=== PATIENT | male | born 2000 | race African-American/Black ===

== ENCOUNTER 2018-03-08 14:16 | Emergency (ER) | payer MEDICAID ==
[~2018-03-08] VITALS: Ht 193 cm; Wt 72.6 kg
--- NOTE | 2018-03-08 14:28 | NUR ---
PT BIBRA FOR B RIBCAGE PAIN FOR 2DAYS, -TRAUMA NOTED, PT AAOX4, RESPRIATIONS EVEN AND UNLABORED, NO SOB, NAD NOTED, PT ON MONITOR, TO ER BED 12, AWAITING ER PROVIDER EVAL
[2018-03-08] MEDS ORDERED: HYDROMORPHONE INJ 2 MG/ML DISP.SYRIN ONE ×2 (14:51→16:46)
[2018-03-08] MEDS ORDERED: ONDANSETRON HCL/PF 4 MG/2 ML VIAL ONE (14:51)
[2018-03-08 14:52] LABS: BASOPHILS # (AUTO) 0.1 /CMM (0.0-0.2); BASOPHILS % (AUTO) 0.7 % (0.0-2.0); EOSINOPHILS % (AUTO) 3.2 % (0.0-6.0); HEMATOCRIT 23 % (39-51); HEMOGLOBIN 8.1 g/dL (13.5-17.5); LYMPHOCYTES % (AUTO) 18.6 % (20.0-44.0); MEAN CORPUSCULAR HGB CONC 35 g/dl (31.0-36.0); MEAN CORPUSCULAR VOLUME 88 fL (80-96); MONOCYTES # (AUTO) 1.4 /CMM (0.1-1.30); MONOCYTES % (AUTO) 8.3 % (2.0-12.0); NEUTROPHILS # (AUTO) 11.3 /CMM (1.8-8.9); NEUTROPHILS % (AUTO) 69.2 % (43.0-81.0); PLATELET COUNT (AUTO) 319 /CMM (150-450); RED BLOOD CELL COUNT(AUTO) 2.63 MIL/uL (4.5-6.0); WHITE BLOOD COUNT (AUTO) 16.3 K/uL (4.3-11.0)
[2018-03-08 14:52] LABS: APPEARANCE,URINE Clear (CLEAR); BILIRUBIN,URINE SMALL (NEGATIVE); BLOOD, URINE Trace-intact Ery/uL (NEGATIVE); COLOR,URINE Yellow (YELLOW); KETONES,URINE Negative (NEGATIVE); LEUKOCYTE ESTERASE ,URINE Moderate (NEGATIVE); NITRITE, URINE Positive (NEGATIVE); PH,URINE 7.5 (5.0-8.0); PROTEIN,URINE Negative (NEGATIVE); UGLUCOSE Negative (NEGATIVE); UROBILINOGEN,URINE >=8.0 EU/dL (0.2)
[2018-03-08] MEDS ORDERED: ONDANSETRON HCL/PF 4 MG/2 ML VIAL IVP ONE (15:00)
[2018-03-08] MEDS ORDERED: IV NS 0.9% 1,000 ML BAG IV ONE ×2 (15:00→16:30)
[2018-03-08] MEDS ORDERED: HYDROMORPHONE INJ 2 MG/ML DISP.SYRIN IV ONE (15:00)
--- NOTE | 2018-03-08 15:01 | NUR ---
PT REFUSED ZOFRAN, "DOESNT LIKE HOW IT FEELS", PT ONLY PREFERS TO HAVE DILAUDID IVP ORDERED; DR ANGLIN MADE AWARE.
[2018-03-08 15:07] LABS: BACTERIA,URINE 3+ /HPF (None Seen); SQUAMOUS EPITHELIAL CELL,UR Few /HPF (None Seen)
[2018-03-08 15:11] LABS: CALCIUM, SERUM 8.8 mg/dL (8.5-10.1); CREATININE 0.7 mg/dL (0.6-1.3)
[2018-03-08 15:25] LABS: ALBUMIN 3.7 g/dL (3.4-5.0); BILIRUBIN,DIRECT 0.5 mg/dL (0.0-0.2); BILIRUBIN,TOTAL 4.1 mg/dL (0.2-1.0); TOTAL PROTEIN, SERUM 8.1 g/dL (6.4-8.2)
[2018-03-08] MEDS ORDERED: ARIP5TAB10 PO (15:26)
[2018-03-08] MEDS ORDERED: HYDR500C2 PO (15:26)
[2018-03-08] MEDS ORDERED: ATOM60CA PO (15:26)
[2018-03-08] MEDS ORDERED: FOLI1TAB16 PO (15:26)
[2018-03-08] MEDS ORDERED: PIPERACILLIN /TAZOBACTAM 3.375 G in IV D5W 50 ML IV ONE (16:00)
[2018-03-08] MEDS ORDERED: KETOROLAC TROMETHAMINE INJ 30 MG/ML VIAL IV ONE (16:00)
[2018-03-08] MEDS ORDERED: KETOROLAC TROMETHAMINE INJ 30 MG/ML VIAL ONE (16:06)
--- NOTE | 2018-03-08 16:40 | NUR ---
Got a call from Augustin at [facility] and was informed that this pt has been accepted to [facility] under Dr. Aquino. Pt is assigned to room#: 934. Number for report is [phone]. [facility] will call back with transport information
--- NOTE | 2018-03-08 16:49 | NUR ---
PT COMPLAINING OF PAIN, DR ANGLIN MADE AWARE, WITH NEW ORDERS FOR DILAUDID 1MG IVP
--- NOTE | 2018-03-08 16:49 | NUR ---
PER MD ORDER; DILAUDID 1MG IVP, DRUG AVAILABLE DILAUDID 2MG, WASTED 1MG WITH KENDAL LEON.
--- NOTE | 2018-03-08 16:52 | NUR ---
Received a call from Augustin at [facility] and was given an eta of 1800 for moss picker through [facility] (S)
[2018-03-08] MEDS ORDERED: HYDROMORPHONE 1 MG/1 ML DISP.SYRIN IV ONE (17:00)
[2018-03-08 17:01] VITALS: BP 148/95
--- NOTE | 2018-03-08 17:11 | NUR ---
REPORT GIVEN TO KENDAL PUTNAM AT [facility] FOR [facility]; AWARE OF PT'S CONDITION AND AMBULANCE ETA.
--- NOTE | 2018-03-08 17:30 | NUR ---
PT TRANSFERRED TO [facility], PT LEFT VIA PRIVATE AMBULANCE, VIA GURNEY WITH 2EMT'S, PT LEFT WITH PIV [id number], PATENT AND INTACT, PT LEFT IN STABLE CONDITION FOR TRANSFER.
== END 2018-03-08 17:32 | disposition short-term general hospital (02) ==
LOC: ER 14:19
DX: D57.00 Hb-SS disease with crisis, unspecified (principal); N30.00 Acute cystitis without hematuria; D64.9 Anemia, unspecified; F19.10 Other psychoactive substance abuse, uncomplicated; E86.0 Dehydration; R94.5 Abnormal results of liver function studies; F10.10 Alcohol abuse, uncomplicated; F12.10 Cannabis abuse, uncomplicated; F15.10 Other stimulant abuse, uncomplicated; Y90.0 Blood alcohol level of less than 20 mg/100 ml; Z60.2 Problems related to living alone; Z59.0 Homelessness
CPT/HCPCS: 36415; 71045-TC; 80048-TC; 80076-TC; 80305; 81000-TC; 83690-TC; 85025-TC; 85045-TC; 87086-TC; G0480; J1170; J1885; J2405; J2543; J7030; J7060